=== PATIENT | male | born 1975 | race Two or more races ===

== ENCOUNTER 2016-11-01 19:21 | Emergency (ER) | payer BC, OTHER ==
[~2016-11-01] VITALS: Ht 175.3 cm; Wt 70.1 kg
[2016-11-01 19:22] VITALS: BP 145/96
[2016-11-01] MEDS ORDERED: IBUPROFEN 200 MG TABLET ONE (19:59)
[2016-11-01] MEDS ORDERED: IBUPROFEN 200 MG TABLET PO ONE (20:00)
== END 2016-11-01 20:44 | disposition home or self-care (01) ==
LOC: ED 20:35
DX: S93.401A Sprain of unspecified ligament of right ankle, initial encounter (principal); Z87.891 Personal history of nicotine dependence; W19.XXXA Unspecified fall, initial encounter; Y93.89 Activity, other specified; Y99.8 Other external cause status; Y92.828 Other wilderness area as the place of occurrence of the external cause
CPT/HCPCS: 99284

== ENCOUNTER 2020-03-11 06:01 | Emergency (ER) | payer MEDICAID ==
[~2020-03-11] VITALS: Ht 175.3 cm; Wt 81.0 kg
[~2020-03-11 06:01] MED LIST: ALBU18HF INH; INHALED STEROID
--- NOTE | 2020-03-11 06:15 | NUR ---
pt came into ED today due to HELLER, states cierra had a migraine for the past week, reports pressure behin dleft eye and back of head on left side. pt reports movement increases pain. gross neuro intact, ANOx4, NAD, denies head trauma.wctm. pt bp/spo2. vseliud Yee MD at bs for eval poc.
[2020-03-11] MEDS ORDERED: SODIUM CHLORIDE FLUSH 10ML SYR IVF ONE (06:30)
[2020-03-11] MEDS ORDERED: DIPHENHYDRAMINE 50 MG/ML, 1ML IVPush ONE (06:30)
[2020-03-11] MEDS ORDERED: SODIUM CHLORIDE 0.9% 1,000ML IVBOLUS ONE (06:30)
[2020-03-11] MEDS ORDERED: METOCLOPRAMIDE 5 MG/ML, 2ML IVPush ONE (06:30)
[2020-03-11] MEDS ORDERED: KETOROLAC 30 MG/1 ML IVPush ONE (06:30)
--- NOTE | 2020-03-11 06:39 | NUR ---
PT MEDICATED PER MAR, NAD, RESTING ON GURNEY, APPEARS COMFORTABLE, DENIES ADDITIONAL NEEDS AT THIS TIME. WCTM. WAITING FOR CT.
[2020-03-11] MEDS ORDERED: DIPHENHYDRAMINE 50 MG/ML, 1ML ONE (06:41)
[2020-03-11] MEDS ORDERED: KETOROLAC 30 MG/1 ML ONE (06:42)
[2020-03-11] MEDS ORDERED: METOCLOPRAMIDE 5 MG/ML, 2ML ONE (06:42)
--- NOTE | 2020-03-11 07:00 | NUR ---
bedside report to albino RN, pt care transferred at this time
--- NOTE | 2020-03-11 07:53 | NUR ---
PT IN CT
[2020-03-11 08:25] VITALS: BP 124/78
== END 2020-03-11 08:27 | disposition home or self-care (01) ==
LOC: ED 06:42
DX: R51 Headache (principal); H57.89 Other specified disorders of eye and adnexa; R11.0 Nausea; Z87.891 Personal history of nicotine dependence
CPT/HCPCS: 70450; 96361; 96374; 96375; 99284; J1200; J1885; J2765; J7030